=== PATIENT | male | born 1990 | race Caucasian/White ===

== ENCOUNTER 2020-11-30 16:36 | Emergency (ER) | payer OTHER ==
[~2020-11-30 16:36] MED LIST: BACTRIM DS TAB1 EACH PO; BACTROBAN OINT22 GM EXT; CLEOCIN HCL300 MG PO; IBUPROFEN600 MG PO; KEFLEX CAP 500500 MG PO
[2020-11-30] MEDS ORDERED: AMOXICILLIN875 MG PO (16:49)
== END 2020-11-30 16:52 | disposition home or self-care (01) ==
LOC: ER1 16:36
DX: H66.91 Otitis media, unspecified, right ear (principal); F17.290 Nicotine dependence, other tobacco product, uncomplicated
CPT/HCPCS: 99282

== ENCOUNTER 2021-03-02 14:45 | Emergency (ER) | payer BC, OTHER ==
[~2021-03-02 14:45] MED LIST changes: +AMOXICILLIN875 MG PO
[2021-03-02 15:21] LABS: HEMOGLOBIN 16.3 gm/dl (14.0-17.5); RED BLOOD COUNT 5.5 M/UL (4.20-5.50); WHITE BLOOD COUNT 14.6 K/UL (4.5-11.0)
[2021-03-02 15:41] LABS: BUN/CREATININE RATIO 22 (0-10)
[2021-03-02] MEDS ORDERED: MIRALAX17 GM PO (18:46)
[2021-03-02] MEDS ORDERED: REGLAN10 MG PO (18:46)
[2021-03-02] MEDS ORDERED: BENTYL 20MG TAB20 MG PO (18:46)
== END 2021-03-02 19:05 | disposition home or self-care (01) ==
LOC: ER1 14:45
PROVIDERS: Emergency Medicine
DX: R10.11 Right upper quadrant pain (principal); K21.9 Gastro-esophageal reflux disease without esophagitis; Z87.891 Personal history of nicotine dependence
CPT/HCPCS: 71045; 80053; 81001; 83690; 85025; 99284; Q9967

== ENCOUNTER → 2021-04-09 | Outpatient (CLI) | payer OTHER ==
[~2021-04-09] MED LIST changes: +BENTYL 20MG TAB20 MG PO; +MIRALAX17 GM PO; +REGLAN10 MG PO
== END ==
LOC: RAD 10:00
DX: K21.00 Gastro-esophageal reflux disease with esophagitis, without bleeding (principal); K44.9 Diaphragmatic hernia without obstruction or gangrene
CPT/HCPCS: 74220

== ENCOUNTER 2021-08-31 04:26 | Emergency (ER) | payer OTHER ==
[2021-08-31 04:59] LABS: HEMOGLOBIN 13.8 gm/dl (14.0-17.5); RED BLOOD COUNT 4.85 M/UL (4.20-5.50); WHITE BLOOD COUNT 12.3 K/UL (4.5-11.0)
[2021-08-31 05:51] LABS: BUN/CREATININE RATIO 13 (0-10)
[2021-08-31] MEDS ORDERED: HYDROCODON-ACE1 EAC4 PO (08:14)
== END 2021-08-31 09:10 | disposition home or self-care (01) ==
LOC: ER1 04:26
PROVIDERS: Family Medicine; Student in an Organized Health Care Education/Training Program
DX: S82.62XA Displaced fracture of lateral malleolus of left fibula, initial encounter for closed fracture (principal); V49.9XXA Car occupant (driver) (passenger) injured in unspecified traffic accident, initial encounter
CPT/HCPCS: 29515; 70450; 71260; 72125; 73502; 73552; 73590; 73610; 80053; 80307; 81001; 82550; 82553; 84484; 85025; 85610; 90715; 96374; 96375; 99284; G0480; J1885; J2270; J2405; Q9967

== ENCOUNTER → 2021-09-04 | Outpatient (CLI) | payer BC, OTHER ==
[~2021-09-04] MED LIST changes: +HYDROCODON-ACE1 EAC4 PO
== END ==
LOC: KOH-I 16:00
DX: S82.55XA Nondisplaced fracture of medial malleolus of left tibia, initial encounter for closed fracture (principal); S92.102A Unspecified fracture of left talus, initial encounter for closed fracture; M79.89 Other specified soft tissue disorders
CPT/HCPCS: 73700

== ENCOUNTER → 2021-09-11 | Outpatient (CLI) | payer BC, OTHER ==
[~2021-09-11] MED LIST changes: +ALLERGY RELIEF5 MG PO; +OMEPRAZOLE40 MG PO; +PREDNISONE 10 M10 MG PO
[2021-09-11 12:54] LABS: HEMOGLOBIN 14.7 gm/dl (14.0-17.5); RED BLOOD COUNT 5.23 M/UL (4.20-5.50); WHITE BLOOD COUNT 9.7 K/UL (4.5-11.0)
[2021-09-11 13:13] LABS: BUN/CREATININE RATIO 17 (0-10)
== END ==
LOC: OPSV2 11:00
PROVIDERS: Podiatrist Foot & Ankle Surgery
DX: Z01.812 Encounter for preprocedural laboratory examination (principal); U07.1 COVID-19; S82.842A Displaced bimalleolar fracture of left lower leg, initial encounter for closed fracture; X58.XXXA Exposure to other specified factors, initial encounter
CPT/HCPCS: 36415; 80048; 85027; U0002

== ENCOUNTER → 2021-09-12 | Day surgery (SDC) | payer OTHER, BC ==
[~2021-09-12] VITALS: Ht 180.3 cm; Wt 89.8 kg
== END | disposition home or self-care (01) ==
LOC: OR 06:57
DX: S82.852A Displaced trimalleolar fracture of left lower leg, initial encounter for closed fracture (principal); S92.102A Unspecified fracture of left talus, initial encounter for closed fracture; S93.422A Sprain of deltoid ligament of left ankle, initial encounter; S93.432A Sprain of tibiofibular ligament of left ankle, initial encounter; K21.9 Gastro-esophageal reflux disease without esophagitis; M25.472 Effusion, left ankle; V89.2XXA Person injured in unspecified motor-vehicle accident, traffic, initial encounter; U07.1 COVID-19
CPT/HCPCS: 73590; 73610; 73630; 76000; 85379; 93971; C1713; J0690; J1100; J1170; J1885; J2250; J2405; J2704; J2795; J3010; J3370; J7120

== ENCOUNTER → 2021-09-18 | Outpatient (CLI) | payer BC, OTHER | LOC: KOH-I 15:23 | DX: S82.852A Displaced trimalleolar fracture of left lower leg, initial encounter for closed fracture (principal) | CPT/HCPCS: 73610 ==

== ENCOUNTER → 2021-10-16 | Outpatient (CLI) | payer BC, OTHER | LOC: KOH-I 15:59 | DX: S82.402D Unspecified fracture of shaft of left fibula, subsequent encounter for closed fracture with routine healing (principal) | CPT/HCPCS: 73610 ==

== ENCOUNTER → 2021-10-30 | Outpatient (CLI) | payer BC, OTHER | LOC: KOH-I 15:28 | DX: S82.892A Other fracture of left lower leg, initial encounter for closed fracture (principal); X58.XXXA Exposure to other specified factors, initial encounter | CPT/HCPCS: 73610 ==

== ENCOUNTER → 2021-11-13 | Outpatient (CLI) | payer BC, OTHER | LOC: KOH-I 15:20 | DX: S82.852A Displaced trimalleolar fracture of left lower leg, initial encounter for closed fracture (principal) | CPT/HCPCS: 73610 ==

== ENCOUNTER → 2021-12-15 | Outpatient (CLI) | payer BC, OTHER | LOC: KOH-I 14:59 | DX: S82.852D Displaced trimalleolar fracture of left lower leg, subsequent encounter for closed fracture with routine healing (principal) | CPT/HCPCS: 73610 ==